=== PATIENT | male | born 1950 | race African-American/Black ===

== ENCOUNTER 2016-10-12 21:35 | Emergency (ER) | payer MEDICARE, MEDICAID ==
[~2016-10-12] VITALS: Ht 175.3 cm; Wt 59.0 kg
[~2016-10-12 21:35] MED LIST: AMLO2.5T45 PO; MEGE400O PO; METO-293 PO; MULT-1146 PO; ONDA4TAB5 PO; POLY17PO3 PO; TAMS0.4C31 PO; [UNRECOGNIZED DRUG - OTHER] PO; milk of magnesia PO
[2016-10-12] MEDS ORDERED: SODIUM CHLORIDE 0.9% 1,000 ML IV ONE (22:38)
[2016-10-12] MEDS ORDERED: MORPHINE SULFATE 4 MG/ML CPJ (NOT FOR IM USE) IV STA (22:38)
[2016-10-12] MEDS ORDERED: ONDANSETRON HCL 4MG/2ML VIAL IV STA (22:38)
[2016-10-12 22:57] LABS: BASOPHILS % 0.3 % (0.0-2.0); EOSINOPHILS % 0.4 % (0.0-5.0); HEMATOCRIT. 36.1 % (42.0-52.0); HEMOGLOBIN. 12.2 g/dL (14.0-18.0); LYMPHOCYTES % 7.8 % (20.0-50.0); MEAN CORPUSCULAR HEMOGLOBIN 30.3 pg (28.0-32.0); MEAN CORPUSCULAR VOLUME 89.5 fL (80.0-94.0); MEAN PLATELET VOLUME 7.7 fl (7.4-10.4); MONOCYTES % 6.6 % (2.0-8.0); NEUTROPHILS % 84.9 % (40.0-76.0); PLATELET 211 x1000/uL (130-400); RED BLOOD CELL COUNT 4.03 mill/uL (4.7-6.1); RED CELL DISTRIBUTION WIDTH 17.3 % (11.6-14.6)
[2016-10-12 23:02] LABS: CHLORIDE 104 mEq/L (98-107); INR 1.1; PROTHROMBIN TIME 10.9 sec
[2016-10-12 23:10] LABS: CARBON DIOXIDE 27 mEq/L (21-32)
[2016-10-13 00:02] LABS: CLARITY URINE CLOUDY (CLEAR); COLOR URINE YELLOW (YELLOW); GLUCOSE URINE NEGATIVE (NEGATIVE); KETONES URINE NEGATIVE (NEGATIVE); LEUKOCYTE ESTERASE URINE 3+ (NEGATIVE); NITRITE URINE NEGATIVE (NEGATIVE); OCCULT BLOOD URINE 3+ (NEGATIVE); PH URINE 8.5 (4.5-8.0); PROTEIN URINE TRACE (NEGATIVE); SPECIFIC GRAVITY URINE 1.011 (1.005-1.030); UROBILINOGEN URINE 0.2 E.U./dL (0.2-1.0)
[2016-10-13 00:18] LABS: UCG SCREEN NEGATIVE
[2016-10-13] MEDS ORDERED: CEFTRIAXONE 1 G PREMIX 50 ML IV ONE (01:30)
[2016-10-13 10:06] VITALS: BP 106/65
== END 2016-10-13 10:09 | disposition home or self-care (01) ==
LOC: ER 22:09
DX: Z46.6 Encounter for fitting and adjustment of urinary device (principal); N39.0 Urinary tract infection, site not specified; I10 Essential (primary) hypertension
CPT/HCPCS: 36415; 51702; 74176; 80053; 81001; 81025; 83690; 85025; 85610; 96361; 96365; 99285; J0696; J7030; 81003; A4315

== ENCOUNTER 2017-04-10 21:38 | Inpatient (IN) | payer MEDICARE, MEDICAID ==
[~2017-04-10] VITALS: Ht 177.8 cm; Wt 59.0 kg
[2017-04-10] MEDS ORDERED: ONDANSETRON HCL 4MG/2ML VIAL IV STA (23:00)
[2017-04-10 23:17] LABS: HEMATOCRIT. 33.3 % (42.0-52.0); HEMOGLOBIN. 11.1 g/dL (14.0-18.0); MEAN CORPUSCULAR HEMOGLOBIN 31.4 pg (28.0-32.0); MEAN CORPUSCULAR VOLUME 94.2 fL (80.0-94.0); MEAN PLATELET VOLUME 7.1 fl (7.4-10.4); PLATELET 144 x1000/uL (130-400); RED BLOOD CELL COUNT 3.54 mill/uL (4.7-6.1); RED CELL DISTRIBUTION WIDTH 14.4 % (11.6-14.6)
[2017-04-10 23:34] LABS: CARBON DIOXIDE 24 mEq/L (21-32); CHLORIDE 109 mEq/L (98-107); ETHANOL BLOOD < 10 mg/dL
[2017-04-10 23:39] LABS: TROPONIN I < 0.02 ng/mL (0.00-0.04)
[2017-04-11] VITALS (30 sets, daily range): BP systolic 62–123; BP diastolic 41–76
[2017-04-11] MEDS: SODIUM CHLORIDE 0.9% 1,000 ML IV ONE ×4 (00:40→01:27)
[2017-04-11 00:51] LABS: CHLORIDE 110 mEq/L (98-107)
[2017-04-11 01:00] LABS: CARBON DIOXIDE 23 mEq/L (21-32)
[2017-04-11] MEDS ORDERED: ACETAMINOPHEN 650MG SUPP PR STA (01:04)
[2017-04-11] MEDS ORDERED: METRONIDAZOLE 500 MG PREMIX 100 ML IV ONE (01:15)
[2017-04-11] MEDS ORDERED: LEVOFLOXACIN 750MG PREMIX 150 ML IV ONE (01:15)
[2017-04-11 01:35] LABS: INR 1.3
[2017-04-11 02:01] LABS: CLARITY URINE CLOUDY (CLEAR); COLOR URINE YELLOW (YELLOW); KETONES URINE NEGATIVE (NEGATIVE); LEUKOCYTE ESTERASE URINE 3+ (NEGATIVE); NITRITE URINE NEGATIVE (NEGATIVE); OCCULT BLOOD URINE NEGATIVE (NEGATIVE); PH URINE >=9.0 (4.5-8.0); PROTEIN URINE 2+ (NEGATIVE); SPECIFIC GRAVITY URINE 1.014 (1.005-1.030); UROBILINOGEN URINE 0.2 E.U./dL (0.2-1.0)
[2017-04-11 02:17] LABS: *AMPHETAMINES SCREEN URINE NEGATIVE (NEGATIVE); *BARBITURATES SCREEN URINE NEGATIVE (NEGATIVE); *BENZODIAZEPINES SCREEN URINE NEGATIVE (NEGATIVE); *COCAINE SCREEN URINE NEGATIVE (NEGATIVE); CANNABINOID URINE SCREEN NEGATIVE (NEGATIVE); METHADONE URINE SCREEN NEGATIVE (NEGATIVE); OPIATES URINE SCREEN NEGATIVE (NEGATIVE); PHENCYCLIDINE URINE SCREEN NEGATIVE (NEGATIVE)
[2017-04-11] MEDS ORDERED: DEXT 5%/0.9% NACL 1,000 ML IV SCH (06:00)
[2017-04-11] MEDS ORDERED: ONDANSETRON HCL 4MG/2ML VIAL IV PRN (06:00)
[2017-04-11 06:42] LABS: PLATELET ESTIMATE NORMAL
[2017-04-11] MEDS: METOCLOPRAMIDE HCL 10MG/2ML VIAL IV SCH ×3 (07:43→22:00)
[2017-04-11 09:14] LABS: HEMATOCRIT. 30.1 % (42.0-52.0); HEMOGLOBIN. 9.7 g/dL (14.0-18.0); MEAN CORPUSCULAR HEMOGLOBIN 30.8 pg (28.0-32.0); MEAN CORPUSCULAR VOLUME 96.1 fL (80.0-94.0); MEAN PLATELET VOLUME 8.7 fl (7.4-10.4); PLATELET 118 x1000/uL (130-400); RED BLOOD CELL COUNT 3.13 mill/uL (4.7-6.1); RED CELL DISTRIBUTION WIDTH 14.8 % (11.6-14.6)
[2017-04-11] MEDS: PIPERACILLIN/TAZ 2.25G PREMIX 50 ML IV SCH ×2 (09:48→16:44)
[2017-04-11 10:15] LABS: PLATELET ESTIMATE SLIGHTLY DECREASED
[2017-04-11] MEDS ORDERED: ACETAMINOPHEN 650MG/20.3ML UDC PO PRN (12:00)
[2017-04-11] MEDS ORDERED: DEXT 5%/0.45% NACL 1000ML 1,000 ML IV SCH (12:30)
[2017-04-11] MEDS ORDERED: SODIUM CHLORIDE 0.9% 500 ML IV ONE (14:00)
[2017-04-11] MEDS ORDERED: SODIUM CHLORIDE 0.9% 1000ML BAG (SEPSIS BOLUS) IV ONE (14:00)
[2017-04-11] MEDS ORDERED: NOREPINEPHRINE 8 MG in DEXT 5% WATER 242 ML IV PRN (18:30)
[2017-04-12] VITALS (93 sets, daily range): BP systolic 77–131; BP diastolic 50–78
[2017-04-12] MEDS: DEXT 5%/0.45% NACL 1000ML 1,000 ML IV SCH ×2 (00:15→10:25)
[2017-04-12] MEDS: PIPERACILLIN/TAZ 2.25G PREMIX 50 ML IV SCH ×4 (01:30→20:05)
[2017-04-12 06:01] LABS: HEMATOCRIT. 27.5 % (42.0-52.0); HEMOGLOBIN. 9.3 g/dL (14.0-18.0); MEAN CORPUSCULAR HEMOGLOBIN 31.9 pg (28.0-32.0); MEAN CORPUSCULAR VOLUME 94.5 fL (80.0-94.0); MEAN PLATELET VOLUME 8.5 fl (7.4-10.4); PLATELET 80 x1000/uL (130-400); RED BLOOD CELL COUNT 2.91 mill/uL (4.7-6.1); RED CELL DISTRIBUTION WIDTH 14.9 % (11.6-14.6)
[2017-04-12] MEDS: METOCLOPRAMIDE HCL 10MG/2ML VIAL IV SCH ×3 (07:00→17:55)
[2017-04-12 09:29] LABS: PHOSPHORUS 4.2 mg/dL (2.5-4.9)
[2017-04-12 09:38] LABS: PLATELET ESTIMATE DECREASED
[2017-04-12] MEDS ORDERED: HEPARIN 1000 UNITS/ML 10ML ONE (09:41)
[2017-04-12] MEDS ORDERED: NOREPINEPHRINE 16MG in DEXT 5% WATER 500ML (DOUBLE CONC) IV PRN (11:15)
[2017-04-12] MEDS: PANTOPRAZOLE SODIUM 40 MG/VIAL IV SCH (12:55)
[2017-04-12] MEDS ORDERED: ACETAMINOPHEN 650MG/20.3ML UDC GT SCH (13:00)
[2017-04-12] MEDS ORDERED: ACETAMINOPHEN 650MG SUPP PR PRN (13:00)
[2017-04-13] VITALS (93 sets, daily range): BP systolic 84–154; BP diastolic 56–108
[2017-04-13] MEDS: METOCLOPRAMIDE HCL 10MG/2ML VIAL IV SCH ×5 (00:35→23:34)
[2017-04-13] MEDS: DEXT 5%/0.45% NACL 1000ML 1,000 ML IV SCH (01:25)
[2017-04-13] MEDS: PIPERACILLIN/TAZ 2.25G PREMIX 50 ML IV SCH ×2 (03:08→09:25)
[2017-04-13 05:51] LABS: HEMATOCRIT. 27.2 % (42.0-52.0); HEMOGLOBIN. 9.1 g/dL (14.0-18.0); MEAN CORPUSCULAR HEMOGLOBIN 31.3 pg (28.0-32.0); MEAN CORPUSCULAR VOLUME 93.6 fL (80.0-94.0); RED CELL DISTRIBUTION WIDTH 14.7 % (11.6-14.6)
[2017-04-13 07:03] LABS: CARBON DIOXIDE 22 mEq/L (21-32); CHLORIDE 115 mEq/L (98-107); PHOSPHORUS 1.9 mg/dL (2.5-4.9)
[2017-04-13 07:18] LABS: PLATELET ESTIMATE MARKEDLY DECREASED
[2017-04-13 07:23] LABS: PLATELET 45 x1000/uL (130-400)
[2017-04-13] MEDS ORDERED: POTASSIUM PHOS,M-BASIC-D-BASIC 30 MMOL in DEXT 5% WATER 500 ML IV ONE ×2 (09:15→10:30)
[2017-04-13] MEDS: PANTOPRAZOLE SODIUM 40 MG/VIAL IV SCH (09:25)
[2017-04-13] MEDS ORDERED: LORAZEPAM 0.5MG TABLET PO PRN (09:30)
[2017-04-13] MEDS ORDERED: POTASSIUM PHOS,M-BASIC-D-BASIC 20 MMOL in DEXT 5% WATER 243.3333 ML IV ONE (09:45)
[2017-04-13] MEDS ORDERED: KCL 20MEQ/100ML PREMIX 100 ML IV SCH (11:00)
[2017-04-13] MEDS: POTASSIUM CHLORIDE INJ 20 MEQ in SODIUM CHLORIDE 0.9% 100 ML IV NR ×3 (11:51→15:00)
[2017-04-13] MEDS: MEROPENEM 1000MG in NORMAL SALINE 100ML IV SCH ×2 (11:51→21:13)
[2017-04-13] MEDS ORDERED: DEXT 5%/0.2% NACL KCL 20MEQ/L 1,000 ML IV SCH (14:30)
[2017-04-13] MEDS ORDERED: POTASSIUM CHLORIDE INJ 20 MEQ in SODIUM CHLORIDE 0.9% 100 ML IV SCH (16:00)
[2017-04-13] MEDS: POTASSIUM CHLORIDE INJ 20 MEQ in DEXT 5%/0.2% NACL 1,000 ML IV SCH (16:42)
[2017-04-13] MEDS: METRONIDAZOLE 500MG TABLET PO SCH (21:13)
[2017-04-14] VITALS (42 sets, daily range): BP systolic 94–125; BP diastolic 53–79
[2017-04-14] MEDS: METRONIDAZOLE 500MG TABLET PO SCH ×3 (05:25→21:24)
[2017-04-14] MEDS: METOCLOPRAMIDE HCL 10MG/2ML VIAL IV SCH ×3 (05:25→18:34)
[2017-04-14] MEDS: POTASSIUM CHLORIDE INJ 20 MEQ in DEXT 5%/0.2% NACL 1,000 ML IV SCH ×2 (05:25→21:24)
[2017-04-14 05:40] LABS: HEMATOCRIT. 25.9 % (42.0-52.0); HEMOGLOBIN. 8.6 g/dL (14.0-18.0); MEAN CORPUSCULAR HEMOGLOBIN 31.2 pg (28.0-32.0); MEAN CORPUSCULAR VOLUME 93.6 fL (80.0-94.0); MEAN PLATELET VOLUME 9.3 fl (7.4-10.4); RED BLOOD CELL COUNT 2.76 mill/uL (4.7-6.1); RED CELL DISTRIBUTION WIDTH 14.7 % (11.6-14.6)
[2017-04-14 05:55] LABS: PLATELET 39 x1000/uL (130-400)
[2017-04-14 07:37] LABS: PLATELET ESTIMATE MARKEDLY DECREASED
[2017-04-14 07:47] LABS: CHLORIDE 116 mEq/L (98-107)
[2017-04-14 07:52] LABS: CARBON DIOXIDE 24 mEq/L (21-32); PHOSPHORUS 1.8 mg/dL (2.5-4.9)
[2017-04-14] MEDS: MEROPENEM 1000MG in NORMAL SALINE 100ML IV SCH ×3 (08:28→18:34)
[2017-04-14] MEDS: PANTOPRAZOLE SODIUM 40 MG/VIAL IV SCH (08:28)
[2017-04-14] MEDS ORDERED: POTASSIUM PHOS,M-BASIC-D-BASIC 30 MMOL in DEXT 5% WATER 500 ML IV NR (10:00)
[2017-04-15 00:16] VITALS: BP 109/74
[2017-04-15] MEDS: MEROPENEM 1000MG in NORMAL SALINE 100ML IV SCH ×3 (01:03→17:07)
[2017-04-15] MEDS: METOCLOPRAMIDE HCL 10MG/2ML VIAL IV SCH ×4 (01:03→17:07)
[2017-04-15 04:00] VITALS: BP 117/78
[2017-04-15] MEDS: METRONIDAZOLE 500MG TABLET PO SCH ×3 (05:24→22:36)
[2017-04-15 07:26] LABS: BASOPHILS % 0.1 % (0.0-2.0); EOSINOPHILS % 2.5 % (0.0-5.0); HEMATOCRIT. 27.2 % (42.0-52.0); HEMOGLOBIN. 9.2 g/dL (14.0-18.0); LYMPHOCYTES % 8.4 % (20.0-50.0); MEAN CORPUSCULAR HEMOGLOBIN 31.6 pg (28.0-32.0); MEAN CORPUSCULAR VOLUME 93.4 fL (80.0-94.0); MEAN PLATELET VOLUME 9.9 fl (7.4-10.4); MONOCYTES % 6.5 % (2.0-8.0); NEUTROPHILS % 82.5 % (40.0-76.0); RED BLOOD CELL COUNT 2.91 mill/uL (4.7-6.1); RED CELL DISTRIBUTION WIDTH 14.7 % (11.6-14.6)
[2017-04-15 07:57] VITALS: BP 117/81
[2017-04-15 07:57] LABS: PLATELET 41 x1000/uL (130-400)
[2017-04-15 08:45] LABS: CARBON DIOXIDE 25 mEq/L (21-32); CHLORIDE 108 mEq/L (98-107); PHOSPHORUS 1.7 mg/dL (2.5-4.9)
[2017-04-15] MEDS ORDERED: MAGNESIUM 2 G PREMIX 50 ML IV NR (11:00)
[2017-04-15 12:13] VITALS: BP 115/73
[2017-04-15] MEDS ORDERED: POTASSIUM PHOS,M-BASIC-D-BASIC 30 MMOL in DEXT 5% WATER 500 ML IV NR (13:00)
[2017-04-15 16:00] VITALS: BP 112/74
[2017-04-15 20:31] VITALS: BP 109/74
[2017-04-16] VITALS (8 sets, daily range): BP systolic 98–123; BP diastolic 63–80
[2017-04-16] MEDS: METOCLOPRAMIDE HCL 10MG/2ML VIAL IV SCH ×4 (00:31→17:43)
[2017-04-16] MEDS: MEROPENEM 1000MG in NORMAL SALINE 100ML IV SCH ×3 (01:45→19:00)
[2017-04-16] MEDS: METRONIDAZOLE 500MG TABLET PO SCH ×2 (06:04→12:58)
[2017-04-16 07:52] LABS: BASOPHILS % 0.3 % (0.0-2.0); EOSINOPHILS % 3.8 % (0.0-5.0); HEMATOCRIT. 30.9 % (42.0-52.0); HEMOGLOBIN. 10.7 g/dL (14.0-18.0); LYMPHOCYTES % 13.4 % (20.0-50.0); MEAN CORPUSCULAR VOLUME 92.9 fL (80.0-94.0); MEAN PLATELET VOLUME 10.8 fl (7.4-10.4); MONOCYTES % 8.5 % (2.0-8.0); PLATELET 66 x1000/uL (130-400); RED BLOOD CELL COUNT 3.33 mill/uL (4.7-6.1); RED CELL DISTRIBUTION WIDTH 14.2 % (11.6-14.6)
[2017-04-16 08:14] LABS: CARBON DIOXIDE 28 mEq/L (21-32); CHLORIDE 104 mEq/L (98-107)
[2017-04-16 08:15] LABS: PHOSPHORUS 2.4 mg/dL (2.5-4.9)
[2017-04-16] MEDS ORDERED: MAGNESIUM 4 G PREMIX 100 ML IV NR (11:00)
[2017-04-16] MEDS ORDERED: POTASSIUM PHOS,M-BASIC-D-BASIC 20 MMOL in SODIUM CHLORIDE 0.9% 250 ML IV NR (15:00)
== END 2017-04-16 21:25 | DRG 698 ==
LOC: ER 21:48 → 8WST 04-11 01:07 → EDBEDREQ 04-11 03:01 → ENRESERV 04-11 03:49 → CVICU 04-11 18:10 → 6WST 04-14 11:03
PROVIDERS: ADMIT Internal Medicine; ATTEND Internal Medicine
PROC: 05HM33Z Insertion of Infusion Device into Right Internal Jugular Vein, Percutaneous Approach (ICD-10-PCS; principal; 2017-04-12)
PROC: B543ZZA Ultrasonography of Right Jugular Veins, Guidance (ICD-10-PCS; 2017-04-12)
DX: T83.518A Infection and inflammatory reaction due to other urinary catheter, initial encounter (principal); R65.21 Severe sepsis with septic shock; A41.9 Sepsis, unspecified organism; G93.40 Encephalopathy, unspecified; E44.0 Moderate protein-calorie malnutrition; N17.9 Acute kidney failure, unspecified; N13.30 Unspecified hydronephrosis; E87.0 Hyperosmolality and hypernatremia; N39.0 Urinary tract infection, site not specified; Z68.1 Body mass index [BMI] 19.9 or less, adult; D68.9 Coagulation defect, unspecified; T83.091A Other mechanical complication of indwelling urethral catheter, initial encounter; N40.0 Benign prostatic hyperplasia without lower urinary tract symptoms; Y73.8 Miscellaneous gastroenterology and urology devices associated with adverse incidents, not elsewhere classified; B96.89 Other specified bacterial agents as the cause of diseases classified elsewhere; D64.9 Anemia, unspecified; D69.59 Other secondary thrombocytopenia; E83.39 Other disorders of phosphorus metabolism; E83.42 Hypomagnesemia; E86.0 Dehydration; E87.6 Hypokalemia; F41.9 Anxiety disorder, unspecified; F79 Unspecified intellectual disabilities; G47.00 Insomnia, unspecified; I10 Essential (primary) hypertension; K21.9 Gastro-esophageal reflux disease without esophagitis; K31.9 Disease of stomach and duodenum, unspecified; K40.90 Unilateral inguinal hernia, without obstruction or gangrene, not specified as recurrent; N32.89 Other specified disorders of bladder; R13.10 Dysphagia, unspecified; R62.7 Adult failure to thrive; Z86.19 Personal history of other infectious and parasitic diseases; Z93.1 Gastrostomy status; Z79.899 Other long term (current) drug therapy
CPT/HCPCS: 36415; 36569; 51702; 71010; 74176; 76937; 80048; 80053; 80305; 81001; 82962; 83605; 83735; 83880; 84100; 84484; 85025; 85610; 87040; 87077; 87086; 87186; 92610; 93005; 96361; 96374; 96375; 99291; A6261; C1725; C9113; G0482; J1644; J1956; J2185; J2405; J2543; J2765; J3475; J3480; J3490; J7030; J7040; J7042; J7050; J7060; A4315

== ENCOUNTER 2017-08-03 20:13 | Inpatient (IN) | payer MEDICARE, MEDICAID ==
[~2017-08-03] VITALS: Ht 330.2 cm; Wt 63.0 kg
[2017-08-03 22:28] LABS: HEMATOCRIT. 33.3 % (42.0-52.0); HEMOGLOBIN. 11.2 g/dL (14.0-18.0); MEAN CORPUSCULAR HEMOGLOBIN 31.6 pg (28.0-32.0); MEAN CORPUSCULAR VOLUME 93.7 fL (80.0-94.0); MEAN PLATELET VOLUME 7.5 fl (7.4-10.4); PLATELET 296 x1000/uL (130-400); RED BLOOD CELL COUNT 3.55 mill/uL (4.7-6.1); RED CELL DISTRIBUTION WIDTH 15.2 % (11.6-14.6)
[2017-08-03 22:33] LABS: CHLORIDE 111 mEq/L (98-107)
[2017-08-03 22:35] LABS: INR 1.1; PROTHROMBIN TIME 11.2 sec (9.4-11.6)
[2017-08-03 23:31] LABS: PLATELET ESTIMATE NORMAL
[2017-08-04] MEDS ORDERED: DEXT 5%/0.45% NACL 1000ML 1,000 ML IV ONE (00:30)
[2017-08-04 00:48] LABS: CLARITY URINE CLOUDY (CLEAR); COLOR URINE YELLOW (YELLOW); KETONES URINE NEGATIVE (NEGATIVE); LEUKOCYTE ESTERASE URINE 3+ (NEGATIVE); NITRITE URINE NEGATIVE (NEGATIVE); OCCULT BLOOD URINE 2+ (NEGATIVE); PH URINE >=9.0 (4.5-8.0); PROTEIN URINE 2+ (NEGATIVE); SPECIFIC GRAVITY URINE 1.012 (1.005-1.030); UROBILINOGEN URINE 0.2 E.U./dL (0.2-1.0)
[2017-08-04 04:00] VITALS: BP 124/81
[2017-08-04 04:03] VITALS: BP 124/81
[2017-08-04] MEDS ORDERED: BACL-141 PO (04:16)
[2017-08-04] MEDS ORDERED: AMLO2.5T45 PO (04:16)
[2017-08-04] MEDS ORDERED: ACET650S25 GT (04:16)
[2017-08-04] MEDS ORDERED: ONDANSETRON 4MG ODT GT PRN (04:30)
[2017-08-04] MEDS ORDERED: ACETAMINOPHEN 650MG/20.3ML UDC GT PRN (04:30)
[2017-08-04] MEDS: SODIUM CHLORIDE 0.45% 1,000 ML IV SCH ×2 (04:48→18:11)
[2017-08-04] MEDS: CEFTRIAXONE 1 G PREMIX 50 ML IV SCH (05:27)
[2017-08-04] MEDS: METOCLOPRAMIDE 10MG/10 ML UDC GT SCH ×3 (05:27→22:20)
[2017-08-04 08:00] VITALS: BP 120/76
[2017-08-04] MEDS: BACLOFEN 10MG TABLET GT SCH ×3 (08:13→18:10)
[2017-08-04] MEDS: MULTIVITAMINS,THER W-MINERALS TABLET GT SCH (08:13)
[2017-08-04] MEDS: AMLODIPINE 5MG TABLET GT SCH (08:13)
[2017-08-04 08:29] LABS: BASOPHILS % 0.2 % (0.0-2.0); EOSINOPHILS % 0.1 % (0.0-5.0); HEMATOCRIT. 31.6 % (42.0-52.0); HEMOGLOBIN. 10.7 g/dL (14.0-18.0); LYMPHOCYTES % 12.4 % (20.0-50.0); MEAN CORPUSCULAR HEMOGLOBIN 31.7 pg (28.0-32.0); MEAN PLATELET VOLUME 8.1 fl (7.4-10.4); NEUTROPHILS % 81.3 % (40.0-76.0); PLATELET 300 x1000/uL (130-400); RED BLOOD CELL COUNT 3.36 mill/uL (4.7-6.1); RED CELL DISTRIBUTION WIDTH 15.3 % (11.6-14.6)
[2017-08-04] MEDS ORDERED: MAGNESIUM HYDROXIDE 400MG/5ML 30ML UDC GT PRN (09:00)
[2017-08-04] MEDS ORDERED: CEFTRIAXONE SODIUM 1 G/VIAL IV ONE (09:00)
[2017-08-04 09:09] LABS: CHLORIDE 114 mEq/L (98-107)
[2017-08-04] MEDS ORDERED: LORAZEPAM 0.5MG TABLET GT PRN (10:45)
[2017-08-04] MEDS ORDERED: LORAZEPAM 2MG/ML CPJ IV PRN (10:45)
[2017-08-04 12:00] VITALS: BP 117/67
[2017-08-04 16:00] VITALS: BP_SYST 127; BP_DIAS 69; BP_DIAS 83
[2017-08-04 20:00] VITALS: BP 124/79
[2017-08-04] MEDS ORDERED: POTASSIUM CHLORIDE INJ 10 MEQ in DEXT 5%/0.2% NACL 1,000 ML IV SCH (22:00)
[2017-08-05] VITALS: BP 118/70
[2017-08-05 04:00] VITALS: BP 120/69
[2017-08-05] MEDS: METOCLOPRAMIDE 10MG/10 ML UDC GT SCH ×2 (05:33→14:20)
[2017-08-05] MEDS: CEFTRIAXONE 1 G PREMIX 50 ML IV SCH (05:33)
[2017-08-05 06:47] LABS: BASOPHILS % 0.5 % (0.0-2.0); EOSINOPHILS % 2.5 % (0.0-5.0); HEMATOCRIT. 30.7 % (42.0-52.0); HEMOGLOBIN. 10.2 g/dL (14.0-18.0); LYMPHOCYTES % 26.7 % (20.0-50.0); MEAN CORPUSCULAR HEMOGLOBIN 31.6 pg (28.0-32.0); MEAN PLATELET VOLUME 8.3 fl (7.4-10.4); NEUTROPHILS % 60.3 % (40.0-76.0); PLATELET 283 x1000/uL (130-400); RED BLOOD CELL COUNT 3.23 mill/uL (4.7-6.1); RED CELL DISTRIBUTION WIDTH 15.2 % (11.6-14.6)
[2017-08-05 06:57] LABS: CHLORIDE 114 mEq/L (98-107)
[2017-08-05 07:13] LABS: PHOSPHORUS 3.1 mg/dL (2.5-4.9)
[2017-08-05 08:00] VITALS: BP 137/80
[2017-08-05] MEDS: AMLODIPINE 5MG TABLET GT SCH (08:20)
[2017-08-05] MEDS: BACLOFEN 10MG TABLET GT SCH ×3 (08:20→17:52)
[2017-08-05] MEDS: MULTIVITAMINS,THER W-MINERALS TABLET GT SCH (08:20)
[2017-08-05 12:00] VITALS: BP 135/78
[2017-08-05] MEDS: DEXT 5% WATER + KCL 20MEQ/L 1,000 ML IV SCH (12:39)
[2017-08-05 16:00] VITALS: BP 119/77
[2017-08-05 20:00] VITALS: BP 122/79
[2017-08-06] VITALS: BP 120/78
[2017-08-06] MEDS: DEXT 5% WATER + KCL 20MEQ/L 1,000 ML IV SCH (01:32)
[2017-08-06] MEDS: METOCLOPRAMIDE 10MG/10 ML UDC GT SCH ×3 (01:32→14:05)
[2017-08-06 04:00] VITALS: BP 135/89
[2017-08-06] MEDS: CEFTRIAXONE 1 G PREMIX 50 ML IV SCH (05:56)
[2017-08-06 06:47] LABS: BASOPHILS % 0.5 % (0.0-2.0); EOSINOPHILS % 2.8 % (0.0-5.0); HEMATOCRIT. 31.2 % (42.0-52.0); HEMOGLOBIN. 10.5 g/dL (14.0-18.0); LYMPHOCYTES % 28.6 % (20.0-50.0); MEAN CORPUSCULAR HEMOGLOBIN 31.4 pg (28.0-32.0); MEAN CORPUSCULAR VOLUME 93.7 fL (80.0-94.0); MEAN PLATELET VOLUME 8.1 fl (7.4-10.4); MONOCYTES % 7.4 % (2.0-8.0); NEUTROPHILS % 60.7 % (40.0-76.0); PLATELET 277 x1000/uL (130-400); RED BLOOD CELL COUNT 3.33 mill/uL (4.7-6.1)
[2017-08-06 08:10] LABS: CHLORIDE 107 mEq/L (98-107)
[2017-08-06 08:19] LABS: PHOSPHORUS 2.5 mg/dL (2.5-4.9)
[2017-08-06] MEDS: AMLODIPINE 5MG TABLET GT SCH (09:49)
[2017-08-06] MEDS: MULTIVITAMINS,THER W-MINERALS TABLET GT SCH (09:49)
[2017-08-06] MEDS: BACLOFEN 10MG TABLET GT SCH ×2 (09:50→13:51)
[2017-08-06 12:42] VITALS: BP 130/82
== END 2017-08-06 15:00 | DRG 689 ==
LOC: ER 20:31 → 6EST 23:09 → EDBEDREQTM 23:33
PROVIDERS: ADMIT Internal Medicine; ATTEND Internal Medicine
DX: N39.0 Urinary tract infection, site not specified (principal); N17.0 Acute kidney failure with tubular necrosis; E87.0 Hyperosmolality and hypernatremia; N13.8 Other obstructive and reflux uropathy; N31.9 Neuromuscular dysfunction of bladder, unspecified; F79 Unspecified intellectual disabilities; R62.7 Adult failure to thrive; I10 Essential (primary) hypertension; E86.0 Dehydration; B96.4 Proteus (mirabilis) (morganii) as the cause of diseases classified elsewhere; D64.9 Anemia, unspecified; F41.9 Anxiety disorder, unspecified; K21.9 Gastro-esophageal reflux disease without esophagitis; K31.9 Disease of stomach and duodenum, unspecified; N40.1 Benign prostatic hyperplasia with lower urinary tract symptoms; Z93.1 Gastrostomy status; Z79.899 Other long term (current) drug therapy
CPT/HCPCS: 36415; 51702; 71045; 76770; 80048; 80053; 81003; 82962; 83735; 84100; 85025; 85610; 87077; 87086; 87186; 93970; 99285; J0696; J3480; J3490; J7030; J7060; J8597; A4315